=== PATIENT | female | born 2000 | race Caucasian/White ===

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

== ENCOUNTER → 2021-07-25 | Outpatient (CLI) | payer BC, OTHER ==
[~2021-07-25] MED LIST changes: +DOK1CAP4 PO; -DOK1CAP7 PO
[2021-07-25 15:37] LABS: BASO % 0.2 % (0.0-1.0); EOS # 0.1 10^3/uL (0.0-0.5); EOS % 0.7 % (0.0-3.0); HEMATOCRIT 37.3 % (36.0-47.0); HEMOGLOBIN 11.8 g/dl (12.0-15.5); LYMPH # 1.1 10^3/uL (1.5-5.0); LYMPH % 10.6 % (24.0-44.0); MEAN CORPUSCULAR HEMOGLOBIN 25.7 pg (27.0-33.0); MEAN CORPUSCULAR HGB CONC 31.6 g/dl (32.0-36.5); MEAN CORPUSCULAR VOLUME 81.3 fl (80.0-96.0); MONO # 0.5 10^3/uL (0.0-0.8); MONO % 4.5 % (2.0-8.0); NEUTROPHILS # 8.6 10^3/uL (1.5-8.5); NEUTROPHILS % 83.5 % (36.0-66.0); PLATELET COUNT, AUTOMATED 215 10^3/uL (150-450); RED BLOOD COUNT 4.59 10^6/uL (4.00-5.40); WHITE BLOOD COUNT 10.3 10^3/uL (4.0-10.0)
[2021-07-25 16:41] LABS: HEPATITIS C VIRUS ABY INDEX 0.1 INDEX (<0.8); HIV 1&2 SCREEN CENTAUR NEGATIVE (NEGATIVE)
[2021-07-25 17:02] LABS: GC DNA AMPLIFICATION NEGATIVE (NEGATIVE)
== END ==
LOC: M PLALAB 13:00
PROVIDERS: ATTEND Obstetrics & Gynecology
DX: Z34.91 Encounter for supervision of normal pregnancy, unspecified, first trimester (principal); Z36.89 Encounter for other specified antenatal screening

== ENCOUNTER → 2021-07-25 | Outpatient (CLI) | payer BC, OTHER | LOC: M WHC 14:26 | PROVIDERS: ATTEND Obstetrics & Gynecology | DX: Z34.92 Encounter for supervision of normal pregnancy, unspecified, second trimester (principal); Z36.89 Encounter for other specified antenatal screening; Z3A.20 20 weeks gestation of pregnancy ==

== ENCOUNTER → 2021-08-30 | Outpatient (CLI) | payer BC, OTHER | LOC: M WHC 12:49 | PROVIDERS: ATTEND Specialist | DX: O32.1XX0 Maternal care for breech presentation, not applicable or unspecified (principal); Z3A.26 26 weeks gestation of pregnancy ==

== ENCOUNTER → 2021-09-17 | Outpatient (CLI) | payer BC, OTHER, MEDICAID ==
[2021-09-17 15:59] LABS: HEMATOCRIT 33.9 % (36.0-47.0); HEMOGLOBIN 10.9 g/dl (12.0-15.5); MEAN CORPUSCULAR HEMOGLOBIN 27.3 pg (27.0-33.0); MEAN CORPUSCULAR HGB CONC 32.2 g/dl (32.0-36.5); MEAN CORPUSCULAR VOLUME 84.8 fl (80.0-96.0); PLATELET COUNT, AUTOMATED 185 10^3/uL (150-450); WHITE BLOOD COUNT 9.1 10^3/uL (4.0-10.0)
[2021-09-17 17:12] LABS: GC DNA AMPLIFICATION NEGATIVE (NEGATIVE)
== END ==
LOC: M PLALAB 12:45
PROVIDERS: ATTEND Specialist
DX: Z34.02 Encounter for supervision of normal first pregnancy, second trimester (principal)

== ENCOUNTER → 2021-11-07 | Outpatient (REF) | payer OTHER, MEDICAID | LOC: M SFHCWAGY 13:14 | PROVIDERS: ATTEND Specialist | DX: Z34.83 Encounter for supervision of other normal pregnancy, third trimester (principal) ==

== ENCOUNTER → 2021-11-08 | Outpatient (CLI) | payer BC, OTHER, MEDICAID | LOC: M WHC 14:01 | PROVIDERS: ATTEND Specialist | DX: Z34.83 Encounter for supervision of other normal pregnancy, third trimester (principal) ==

== ENCOUNTER 2021-11-19 11:47 | Emergency (ER) | payer BC, OTHER, MEDICAID ==
[~2021-11-19] VITALS: Ht 167.6 cm; Wt 118.2 kg
[2021-11-19] MEDS ORDERED: PREN1CHW6 PO (12:17)
[2021-11-19] MEDS ORDERED: ACETAMINOPHEN TAB 650MG DOSE (2X325MG) PO ONE (15:35)
[2021-11-19 15:59] LABS: BASO % 0.3 % (0.0-1.0); EOS % 0.4 % (0.0-3.0); HEMATOCRIT 39.2 % (36.0-47.0); HEMOGLOBIN 12.3 g/dl (12.0-15.5); LYMPH # 1.4 10^3/uL (1.5-5.0); MEAN CORPUSCULAR HEMOGLOBIN 26.4 pg (27.0-33.0); MEAN CORPUSCULAR HGB CONC 31.4 g/dl (32.0-36.5); MEAN CORPUSCULAR VOLUME 84.1 fl (80.0-96.0); MONO # 0.5 10^3/uL (0.0-0.8); MONO % 4.6 % (2.0-8.0); NEUTROPHILS # 8.9 10^3/uL (1.5-8.5); NEUTROPHILS % 81.2 % (36.0-66.0); PLATELET COUNT, AUTOMATED 188 10^3/uL (150-450); RED BLOOD COUNT 4.66 10^6/uL (4.00-5.40); WHITE BLOOD COUNT 10.9 10^3/uL (4.0-10.0)
[2021-11-19 16:29] LABS: TOTAL PROTEIN,RANDOM URINE 19.2 MG/DL (0.0-12.0)
[2021-11-19 17:13] LABS: ALBUMIN 2.7 GM/DL (3.2-5.2); ALT/SGPT 17 U/L (12-78); BILIRUBIN,TOTAL 0.5 MG/DL (0.2-1.0); BLOOD UREA NITROGEN 5 MG/DL (7-18); CALCIUM LEVEL 8.9 MG/DL (8.5-10.1); CARBON DIOXIDE LEVEL 22 MEQ/L (21-32); CHLORIDE LEVEL 105 MEQ/L (98-107); CREATININE FOR GFR 0.52 MG/DL (0.55-1.30); GLUCOSE, FASTING 76 MG/DL (70-100); POTASSIUM SERUM 4.9 MEQ/L (3.5-5.1); SODIUM LEVEL 136 MEQ/L (136-145); TOTAL PROTEIN 7.4 GM/DL (6.4-8.2)
[2021-11-19 18:15] VITALS: BP 123/78
== END 2021-11-19 18:17 | disposition admitted as inpatient to this hospital (09) ==
LOC: M ED 11:47
DX: R51.9 Headache, unspecified (principal); R42 Dizziness and giddiness; Z3A.38 38 weeks gestation of pregnancy; Z87.59 Personal history of other complications of pregnancy, childbirth and the puerperium; Z79.899 Other long term (current) drug therapy

== ENCOUNTER 2021-11-19 18:17 | Outpatient (CLI) | payer BC, OTHER, MEDICAID ==
[~2021-11-19] VITALS: Ht 167.6 cm; Wt 116.6 kg
[~2021-11-19 18:17] MED LIST changes: +PREN1CHW6 PO
[2021-11-19] MEDS ORDERED: HOME MED LIST COMPLETE! XX SCH (18:30)
[2021-11-19 18:37] VITALS: BP 121/69
[2021-11-19 19:07] VITALS: BP 124/74
[2021-11-19 19:22] VITALS: BP 133/81
[2021-11-19 19:46] VITALS: BP 140/83
[2021-11-19 20:05] VITALS: BP 140/84
[2021-11-19 20:13] VITALS: BP 111/55
== END 2021-11-19 20:20 | disposition home or self-care (01) ==
LOC: M LDO 18:17
PROVIDERS: ATTEND Advanced Practice Midwife
DX: O26.893 Other specified pregnancy related conditions, third trimester (principal); R51.9 Headache, unspecified; Z3A.38 38 weeks gestation of pregnancy
CPT/HCPCS: 59025; G0463

== ENCOUNTER 2021-11-26 08:21 | Inpatient (IN) | payer BC, OTHER, MEDICAID ==
[~2021-11-26] VITALS: Ht 167.6 cm; Wt 117.7 kg
[2021-11-26] VITALS (8 sets, daily range): BP systolic 111–139; BP diastolic 56–80
[2021-11-26] MEDS ORDERED: LACTATED RINGER'S 1000 ML IV STA (08:56)
[2021-11-26] MEDS ORDERED: OXYTOCIN DRIP 30 UNITS in IV 1 EA IV PRN (09:00)
[2021-11-26] MEDS ORDERED: OXYTOCIN INJ 10 UNITS/ML VIAL (J2590) IM PRN (09:00)
[2021-11-26] MEDS ORDERED: CARBOPROST TROMETHAMINE 250 MCG/ML AMP IM PRN (09:00)
[2021-11-26] MEDS ORDERED: TRANEXAMIC ACID INJection 1,000 MG in NS 100 ML IV PRN (09:00)
[2021-11-26] MEDS ORDERED: LIDOCAINE 1% MDV 20ML VIAL INFIL PRN (09:00)
[2021-11-26] MEDS ORDERED: METHYLERGONOVINE MALEATE 0.2 MG/ML VIAL (J2210) IM PRN (09:00)
[2021-11-26 09:30] LABS: HEMATOCRIT 32.1 % (36.0-47.0); HEMOGLOBIN 10.5 g/dl (12.0-15.5); MEAN CORPUSCULAR HEMOGLOBIN 26.9 pg (27.0-33.0); MEAN CORPUSCULAR HGB CONC 32.7 g/dl (32.0-36.5); MEAN CORPUSCULAR VOLUME 82.1 fl (80.0-96.0); PLATELET COUNT, AUTOMATED 148 10^3/uL (150-450); RED BLOOD COUNT 3.91 10^6/uL (4.00-5.40); WHITE BLOOD COUNT 7.1 10^3/uL (4.0-10.0)
[2021-11-26] MEDS ORDERED: miSOPROStol 50MCG 1/2 TABLET PO ONE (09:50)
[2021-11-26 14:13] LABS: ALT/SGPT 15 U/L (12-78); BILIRUBIN,TOTAL 0.2 MG/DL (0.2-1.0); CREATININE FOR GFR 0.57 MG/DL (0.55-1.30); LDH LACTATE DEHYDROGENASE 151 U/L (84-246); URIC ACID 3.8 MG/DL (2.6-6.0)
[2021-11-26] MEDS ORDERED: OXYTOCIN DRIP 30 UNITS in IV 1 EA IV SCH (14:15)
[2021-11-26] MEDS ORDERED: LR 1,000 ML IV SCH (14:15)
[2021-11-26] MEDS ORDERED: EPIDURAL/PCA KEYS XX PRN (17:15)
[2021-11-26] MEDS ORDERED: ONDANSETRON 4MG 2ML VIAL IV PRN (17:15)
[2021-11-26] MEDS ORDERED: FENTANYL/ROPIVACAINE/NACL BAG 100 ML EPIDURAL SCH (17:15)
[2021-11-26] MEDS ORDERED: LR 500 ML IV PRN (17:15)
[2021-11-26] MEDS ORDERED: ePHEDrine SULFATE 25 MG/5 ML(5MG/ML) SYRINGE IVP PRN (17:15)
[2021-11-26] MEDS ORDERED: diphenhydrAMINE 50MG/ML VIAL (J1200) IV PRN (17:15)
[2021-11-26] MEDS ORDERED: NALOXONE INJ 0.4MG/1ML VIAL (J2310 PER 1MG) IV PRN (17:15)
[2021-11-26] MEDS ORDERED: FENTANYL 2MCG/ML ROPIVACAINE 0.2% IN 0.9% NACL 100ML IVBAG As Ordered ONE (17:16)
[2021-11-26] MEDS ORDERED: IBUPROFEN 800 MG TAB PO PRN (20:50)
[2021-11-26] MEDS ORDERED: ACETAMINOPHEN TAB 650MG DOSE (2X325MG) PO PRN (20:50)
[2021-11-26] MEDS ORDERED: MOM 30ML SUSPENSION UDC PO PRN (20:50)
[2021-11-26] MEDS ORDERED: DOCUSATE SODIUM 100MG CAPSULE PO PRN (20:50)
[2021-11-26] MEDS ORDERED: RHOGAM 300 MCG (1500 IU) INJ (J2790) IM SCH (20:50)
[2021-11-26] MEDS ORDERED: IBUPROFEN 600MG TAB PO PRN (20:50)
[2021-11-26] MEDS ORDERED: ANUSOL HC CREAM 30GM TOP PRN (20:50)
[2021-11-26] MEDS ORDERED: DIBUCAINE 1% OINTMENT 30GM TOP PRN (20:50)
[2021-11-26] MEDS ORDERED: ACETAMINOPHEN 500 MG TAB PO PRN (20:50)
[2021-11-26] MEDS ORDERED: METHYLERGONOVINE MALEATE 0.2 MG TAB PO PRN (20:50)
[2021-11-27 06:00] VITALS: BP 127/74
[2021-11-27] MEDS: PRENATAL VITAMINS CHEWABLE TABLET PO SCH (07:46)
[2021-11-27 17:56] VITALS: BP 132/82
[2021-11-28 05:39] VITALS: BP 102/65
[2021-11-28] MEDS ORDERED: MEASLES,MUMPS,RUBELLA VACCINE INJ (MMR-II) (90707) SC.IMMUN ONE (09:00)
[2021-11-28] MEDS: PRENATAL VITAMINS CHEWABLE TABLET PO SCH (11:24)
== END 2021-11-28 16:34 | disposition home or self-care (01) | DRG 560 ==
LOC: M LDI 08:21 → M OBS 21:35
PROVIDERS: ADMIT Advanced Practice Midwife; ATTEND Advanced Practice Midwife
PROC: 10E0XZZ Delivery of Products of Conception, External Approach (ICD-10-PCS; principal; 2021-11-26)
PROC: 0KQM0ZZ Repair Perineum Muscle, Open Approach (ICD-10-PCS; 2021-11-26)
PROC: 3E033VJ Introduction of Other Hormone into Peripheral Vein, Percutaneous Approach (ICD-10-PCS; 2021-11-26)
DX: O13.4 Gestational [pregnancy-induced] hypertension without significant proteinuria, complicating childbirth (principal); O69.82X0 Labor and delivery complicated by other cord entanglement, without compression, not applicable or unspecified; O70.1 Second degree perineal laceration during delivery; Z37.0 Single live birth; Z3A.39 39 weeks gestation of pregnancy

== ENCOUNTER → 2022-05-20 | Outpatient (REF) | LOC: M EMP 05-17 13:49 | PROVIDERS: ATTEND Family Medicine | DX: Z11.52 Encounter for screening for COVID-19 (principal) ==

== ENCOUNTER → 2022-05-27 | Outpatient (REF) | LOC: M EMP 08:54 | PROVIDERS: ATTEND Family Medicine | DX: Z11.52 Encounter for screening for COVID-19 (principal) ==

== ENCOUNTER → 2022-06-04 | Outpatient (REF) | LOC: M EMP 09:18 | PROVIDERS: ATTEND Family Medicine | DX: Z11.52 Encounter for screening for COVID-19 (principal) ==

== ENCOUNTER → 2022-08-21 | Outpatient (REF) | LOC: M EMP 09:08 | PROVIDERS: ATTEND Family Medicine | DX: Z11.52 Encounter for screening for COVID-19 (principal) ==

== ENCOUNTER 2022-10-16 17:44 | Emergency (ER) | payer BC, OTHER, MEDICAID ==
[~2022-10-16] VITALS: Ht 170.2 cm; Wt 100.3 kg
[2022-10-16 17:44] VITALS: BP 168/106; TEMP 98.8; O2SAT 97
[2022-10-16 18:27] LABS: BASO % 0.3 % (0.0-1.0); EOS # 0.1 10^3/uL (0.0-0.5); EOS % 1.8 % (0.0-3.0); HEMATOCRIT 35.7 % (36.0-47.0); HEMOGLOBIN 11.9 g/dl (12.0-15.5); LYMPH # 1.6 10^3/uL (1.5-5.0); LYMPH % 24.2 % (24.0-44.0); MEAN CORPUSCULAR HEMOGLOBIN 27.5 pg (27.0-33.0); MEAN CORPUSCULAR HGB CONC 33.3 g/dl (32.0-36.5); MEAN CORPUSCULAR VOLUME 82.6 fl (80.0-96.0); MONO # 0.4 10^3/uL (0.0-0.8); NEUTROPHILS # 4.5 10^3/uL (1.5-8.5); NEUTROPHILS % 67.4 % (36.0-66.0); PLATELET COUNT, AUTOMATED 246 10^3/uL (150-450); RED BLOOD COUNT 4.32 10^6/uL (4.00-5.40); WHITE BLOOD COUNT 6.7 10^3/uL (4.0-10.0)
[2022-10-16 18:51] LABS: BLOOD UREA NITROGEN 15 MG/DL (9-23); CARBON DIOXIDE LEVEL 27 MMOL/L (20-31); CHLORIDE LEVEL 104 MMOL/L (98-107); CREATININE FOR GFR 0.73 MG/DL (0.55-1.30); GLOMERULAR FILTRATION RATE > 60.0 (>60); GLUCOSE, FASTING 88 MG/DL (60-100); HCG, SERUM QUANTITATIVE 253.1 MIU/ML (<4.2); SODIUM LEVEL 140 MMOL/L (136-145)
== END 2022-10-16 21:35 | disposition left against medical advice (07) ==
LOC: M ED 17:44
DX: Z53.21 Procedure and treatment not carried out due to patient leaving prior to being seen by health care provider (principal)

== ENCOUNTER → 2022-12-31 | Outpatient (CLI) | payer BC, OTHER ==
[2022-12-31 18:09] LABS: HEMATOCRIT 38.6 % (36.0-47.0); HEMOGLOBIN 12.7 g/dl (12.0-15.5); MEAN CORPUSCULAR HEMOGLOBIN 27.6 pg (27.0-33.0); MEAN CORPUSCULAR HGB CONC 32.9 g/dl (32.0-36.5); MEAN CORPUSCULAR VOLUME 83.9 fl (80.0-96.0); PLATELET COUNT, AUTOMATED 237 10^3/uL (150-450); WHITE BLOOD COUNT 6.8 10^3/uL (4.0-10.0)
[2022-12-31 18:30] LABS: HIV 1&2 SCREEN NEGATIVE (NEGATIVE)
[2022-12-31 18:38] LABS: HEPATITIS C VIRUS ABY INDEX 0.06 INDEX (<0.8)
[2022-12-31 19:44] LABS: GC DNA AMPLIFICATION NEGATIVE (NEGATIVE)
== END ==
LOC: M PLALAB 15:02
PROVIDERS: ATTEND Advanced Practice Midwife
DX: Z34.91 Encounter for supervision of normal pregnancy, unspecified, first trimester (principal)

== ENCOUNTER → 2023-02-24 | Outpatient (CLI) | payer BC, OTHER | LOC: M WHC 11:33 | PROVIDERS: ATTEND Obstetrics & Gynecology | DX: Z34.02 Encounter for supervision of normal first pregnancy, second trimester (principal); Z3A.19 19 weeks gestation of pregnancy ==

== ENCOUNTER → 2023-03-27 | Outpatient (CLI) | payer BC, OTHER | LOC: M WHC 07:04 | PROVIDERS: ATTEND Advanced Practice Midwife | DX: O99.212 Obesity complicating pregnancy, second trimester (principal); E66.9 Obesity, unspecified; Z3A.23 23 weeks gestation of pregnancy ==

== ENCOUNTER → 2023-04-30 | Outpatient (CLI) | payer BC, OTHER ==
[2023-04-30 17:13] LABS: HEMATOCRIT 30.8 % (36.0-47.0); HEMOGLOBIN 9.9 g/dl (12.0-15.5); MEAN CORPUSCULAR HEMOGLOBIN 26.3 pg (27.0-33.0); MEAN CORPUSCULAR HGB CONC 32.1 g/dl (32.0-36.5); MEAN CORPUSCULAR VOLUME 81.9 fl (80.0-96.0); PLATELET COUNT, AUTOMATED 181 10^3/uL (150-450); RED BLOOD COUNT 3.76 10^6/uL (4.00-5.40); WHITE BLOOD COUNT 8.5 10^3/uL (4.0-10.0)
== END ==
LOC: M PLALAB 14:29
PROVIDERS: ATTEND Advanced Practice Midwife
DX: O99.212 Obesity complicating pregnancy, second trimester (principal); Z3A.00 Weeks of gestation of pregnancy not specified

== ENCOUNTER → 2023-07-08 | Outpatient (REF) | payer BC, MEDICAID | LOC: M PLALAB 13:28 | PROVIDERS: ATTEND Obstetrics & Gynecology | DX: Z3A.36 36 weeks gestation of pregnancy (principal) ==

== ENCOUNTER → 2024-11-11 | Outpatient (CLI) | payer BC ==
[~2024-11-11] MED LIST changes: +IBUP600T42 PO
== END ==
LOC: M RAD 12:28
PROVIDERS: ATTEND Nurse Practitioner Family
DX: Z34.82 Encounter for supervision of other normal pregnancy, second trimester (principal); Z3A.24 24 weeks gestation of pregnancy

== ENCOUNTER → 2025-01-18 | Outpatient (REF) | payer BC, MEDICAID ==
[2025-01-18 14:17] LABS: PLATELET COUNT, AUTOMATED 163 10^3/uL (150-450)
[2025-01-18 15:11] LABS: HIV 1&2 SCREEN NEGATIVE (NEGATIVE)
[2025-01-18 15:18] LABS: HEPATITIS C VIRUS ABY INDEX 0.02 INDEX (<0.8)
[2025-01-18 17:12] LABS: Trichomonas vaginalis (AMP) NOT DETECTED (NEGATIVE)
[2025-01-18 17:35] LABS: GC DNA AMPLIFICATION NEGATIVE (NEGATIVE)
== END ==
LOC: M SFHCWAGY 13:16
PROVIDERS: ATTEND Student in an Organized Health Care Education/Training Program
DX: Z34.80 Encounter for supervision of other normal pregnancy, unspecified trimester (principal)

== ENCOUNTER → 2025-02-01 | Outpatient (REF) | payer BC, MEDICAID | LOC: M SFHCWAGY 12:44 | PROVIDERS: ATTEND Nurse Practitioner Family | DX: Z34.93 Encounter for supervision of normal pregnancy, unspecified, third trimester (principal); Z3A.36 36 weeks gestation of pregnancy ==

== ENCOUNTER 2025-02-03 12:20 | Outpatient (CLI) | payer BC, MEDICAID ==
[~2025-02-03] VITALS: Ht 167.6 cm; Wt 118.2 kg
[~2025-02-03 12:20] MED LIST changes: +ALBUTEROL SULFATE 2.5 MG/0.5 ML INH CONCENTRATE NEB SOLN INH PRN; +EPINEPHrine INJ 1 MG/ML 1ML AMP IM PRN; +diphenhydrAMINE 50 MG/ML VIAL IV PRN
[2025-02-03 12:35] VITALS: BP 155/84; O2SAT 99
[2025-02-03] MEDS: diphenhydrAMINE 25MG PO PRIOR TO INFUSION PO ONE (12:50)
[2025-02-03] MEDS: ACETAMINOPHEN 650MG PO PRIOR TO INFUSION PO ONE (12:50)
[2025-02-03] MEDS: IRON SUCROSE 300 MG in NS 250 ML IV ONE (13:20)
[2025-02-03 15:15] VITALS: BP 117/60; O2SAT 98
== END 2025-02-03 15:10 | disposition home or self-care (01) ==
LOC: M INFU 12:20
PROVIDERS: ATTEND Obstetrics & Gynecology
DX: D50.9 Iron deficiency anemia, unspecified (principal)
CPT/HCPCS: 96365; 96366; J1756

== ENCOUNTER 2025-02-05 08:34 | Outpatient (CLI) | payer BC ==
[~2025-02-05] VITALS: Ht 167.6 cm; Wt 119.2 kg
[~2025-02-05 08:34] MED LIST changes: -ALBUTEROL SULFATE 2.5 MG/0.5 ML INH CONCENTRATE NEB SOLN INH PRN; -EPINEPHrine INJ 1 MG/ML 1ML AMP IM PRN; -diphenhydrAMINE 50 MG/ML VIAL IV PRN
[2025-02-05] MEDS ORDERED: HOME MED LIST COMPLETE! XX SCH (08:50)
[2025-02-05 08:53] VITALS: BP 119/72; O2SAT 98
[2025-02-05] MEDS: ONDANSETRON 4MG ORAL DISINTEGRATING TAB PO ONE (09:48)
[2025-02-05 09:52] LABS: PLATELET COUNT, AUTOMATED 157 10^3/uL (150-450)
[2025-02-05] MEDS: PANTOPRAZOLE 20 MG TAB PO ONE (10:14)
[2025-02-05 10:17] VITALS: BP 136/73
[2025-02-05 10:17] LABS: AMPHETAMINES URINE REFLEX NEGATIVE (NEGATIVE); BARBITURATES URINE REFLEX NEGATIVE (NEGATIVE); BENZODIAZEPINES URINE REFLEX NEGATIVE (NEGATIVE); COCAINE METABOLITE URINE REFLE NEGATIVE (NEGATIVE); METHADONE URINE REFLEX NEGATIVE (NEGATIVE); OPIATES URINE REFLEX NEGATIVE (NEGATIVE); PHENCYCLIDINE URINE REFLEX NEGATIVE (NEGATIVE)
[2025-02-05 10:18] LABS: CANNABINOIDS URINE REFLEX NEGATIVE (NEGATIVE)
[2025-02-05 10:22] LABS: ALT/SGPT 14 U/L (7.0-40); AST/SGOT 18 U/L (<34); CALCIUM LEVEL 8.0 MG/DL (8.5-10.1); CARBON DIOXIDE LEVEL 21 MMOL/L (20-31); CHLORIDE LEVEL 105 MMOL/L (98-107); CREATININE FOR GFR 0.51 MG/DL (0.55-1.30); GLOMERULAR FILTRATION RATE > 90.0 (>60); POTASSIUM SERUM 3.9 MMOL/L (3.5-5.1); SODIUM LEVEL 139 MMOL/L (136-145)
[2025-02-05] MEDS: LR 1,000 ML IV SCH (10:35)
== END 2025-02-05 11:32 | disposition home or self-care (01) ==
LOC: M LDO 08:34
PROVIDERS: ATTEND Specialist
DX: O21.2 Late vomiting of pregnancy (principal); O99.013 Anemia complicating pregnancy, third trimester; O99.333 Smoking (tobacco) complicating pregnancy, third trimester; D50.9 Iron deficiency anemia, unspecified; Z3A.36 36 weeks gestation of pregnancy; F17.290 Nicotine dependence, other tobacco product, uncomplicated
CPT/HCPCS: 59025; 80053; 80307; 85027; 96360; 96361; G0463

== ENCOUNTER 2025-02-20 07:31 | Inpatient (IN) | payer BC, MEDICAID ==
[2025-02-20] VITALS (30 sets, daily range): BP systolic 103–171; BP diastolic 54–86; O2SAT 98
[~2025-02-20] VITALS: Ht 167.6 cm; Wt 122.4 kg
[2025-02-20] MEDS ORDERED: HOME MED LIST COMPLETE! XX SCH (07:50)
[2025-02-20] MEDS ORDERED: OXYTOCIN INJ 10UNITS/ML 1ML VIAL IM PRN (08:00)
[2025-02-20] MEDS ORDERED: LIDOCAINE 1% MDV 20 ML VIAL INFIL PRN (08:00)
[2025-02-20] MEDS ORDERED: OXYTOCIN DRIP 30 UNITS in IV 1 EA IV PRN (08:00)
[2025-02-20] MEDS: miSOPROStol 50 MCG 1/2 TABLET PO PRN (08:50)
[2025-02-20 09:08] LABS: PLATELET COUNT, AUTOMATED 184 10^3/uL (150-450)
[2025-02-20 09:52] LABS: HIV 1&2 SCREEN NEGATIVE (NEGATIVE)
[2025-02-20 10:00] LABS: HEPATITIS C VIRUS ABY INDEX < 0.02 INDEX (<0.8)
[2025-02-20 11:32] LABS: ESTIMATED AVERAGE GLUCOSE 108.0 MG/DL (60-110)
[2025-02-20 11:52] LABS: AMPHETAMINES LEVEL URINE NEGATIVE (NEGATIVE); BARBITURATES URINE NEGATIVE (NEGATIVE); BENZODIAZEPINES URINE NEGATIVE (NEGATIVE); CANNABINOIDS URINE NEGATIVE (NEGATIVE); COCAINE METABOLITE URINE NEGATIVE (NEGATIVE); METHADONE URINE NEGATIVE (NEGATIVE); OPIATES URINE NEGATIVE (NEGATIVE); PHENCYCLIDINE URINE NEGATIVE (NEGATIVE)
[2025-02-20] MEDS: LR 1,000 ML IV ONE (16:38)
[2025-02-20] MEDS ORDERED: ONDANSETRON 4MG/2ML VIAL IV PRN (16:45)
[2025-02-20] MEDS ORDERED: LR 500 ML IV PRN (16:45)
[2025-02-20] MEDS ORDERED: diphenhydrAMINE 50 MG/ML VIAL IV PRN (16:45)
[2025-02-20] MEDS ORDERED: EPIDURAL/PCA KEYS XX PRN (16:45)
[2025-02-20] MEDS ORDERED: NALOXONE INJ 0.4 MG/1 ML VIAL IV PRN (16:45)
[2025-02-20] MEDS ORDERED: FENTANYL 2 MCG/ML ROPIVACAINE 0.2% IN 0.9% NACL 100 ML IVBAG As Ordered ONE (16:46)
[2025-02-20] MEDS: FENTANYL/ROPIVACAINE/NACL BAG 100 ML EPIDURAL SCH (16:54)
[2025-02-20] MEDS ORDERED: LR 1,000 ML IV SCH (19:20)
[2025-02-20] MEDS ORDERED: OXYTOCIN DRIP 30 UNITS in IV 1 EA IV SCH (19:20)
[2025-02-20] MEDS: OXYTOCIN DRIP 30 UNITS in IV 1 EA IV PRN (20:03)
[2025-02-20] MEDS: TRANEXAMIC ACID INJection 1,000 MG in NS 100 ML IV PRN (20:04)
[2025-02-20] MEDS: METHYLERGONOVINE MALEATE 0.2 MG/ML 1 ML VIAL IM PRN (20:05)
[2025-02-20] MEDS ORDERED: DIBUCAINE 1% OINTMENT 30 GM TOP PRN (20:30)
[2025-02-20] MEDS ORDERED: DOCUSATE SODIUM 100 MG CAPSULE PO PRN (20:30)
[2025-02-20] MEDS: LR 1,000 ML IV SCH (20:30)
[2025-02-20] MEDS ORDERED: ACETAMINOPHEN 500 MG TAB PO PRN (20:30)
[2025-02-20] MEDS ORDERED: ACETAMINOPHEN 325 MG TAB PO PRN (20:30)
[2025-02-20] MEDS ORDERED: METHYLERGONOVINE MALEATE 0.2 MG TAB PO PRN (20:30)
[2025-02-20] MEDS ORDERED: RHOGAM 300MCG (1500IU) INJ IM SCH (20:30)
[2025-02-21 05:22] VITALS: BP 126/86; O2SAT 97
[2025-02-21] MEDS: IBUPROFEN 800 MG TAB PO PRN (05:36)
[2025-02-21 07:29] LABS: PLATELET COUNT, AUTOMATED 155 10^3/uL (150-450)
[2025-02-21] MEDS: PRENATAL VITAMINS CHEWABLE TABLET PO SCH (08:06)
[2025-02-21 18:06] VITALS: BP 125/77; O2SAT 100
[2025-02-22] MEDS: IBUPROFEN 600 MG TAB PO PRN (03:01)
[2025-02-22 05:36] VITALS: BP 123/82; O2SAT 99
[2025-02-22] MEDS: MEASLES,MUMPS,RUBELLA VACCINE INJ (MMR-II) SC.IMMUN ONE (09:00)
== END 2025-02-22 18:45 | disposition home or self-care (01) | DRG 560 ==
LOC: M LDI 07:31 → M OBS 22:31
PROVIDERS: ADMIT Obstetrics & Gynecology; ATTEND Obstetrics & Gynecology
PROC: 10E0XZZ Delivery of Products of Conception, External Approach (ICD-10-PCS; principal; 2025-02-20)
PROC: 10907ZC Drainage of Amniotic Fluid, Therapeutic from Products of Conception, Via Natural or Artificial Opening (ICD-10-PCS; 2025-02-20)
PROC: 3E0DXGC Introduction of Other Therapeutic Substance into Mouth and Pharynx, External Approach (ICD-10-PCS; 2025-02-20)
DX: O13.4 Gestational [pregnancy-induced] hypertension without significant proteinuria, complicating childbirth (principal); Z37.0 Single live birth; Z3A.39 39 weeks gestation of pregnancy